=== PATIENT | female | born 1945 | race Caucasian/White ===

== ENCOUNTER 2023-11-05 10:40 | Outpatient (AMB) | payer MEDICARE, SELFPAY ==
--- NOTE | 2023-11-05 10:45 | A.OFFVIS_ITS ---
Vital Signs 11/05/23 10:47 Height 5 ft 6 in Weight 143 lb BMI 23.1 BP 191/93 H Blood Pressure Location Lt brachial Position Sitting Respiration 16 Pulse 87 Pulse Source Pulse Oximeter Pulse Oximetry (%) 97 Oxygen Delivery Method Room Air Intake Visit Reasons: DISORDER OF SACRUM Allergies iodine Adverse Reaction (Severe, Verified 11/05/23 10:49) hives latex Adverse Reaction (Severe, Verified 11/05/23 10:49) blisters Medication List - Last Reconciled 11/05/23 by Desiree Mcmullen LPN aspirin 81 mg PO BID levothyroxine 25 mcg PO DAILY raloxifene 60 mg PO DAILY trazodone 75 mg PO BEDTIME venlafaxine ER 225 mg PO DAILY HPI HPI DISORDER OF SACRUM: Details: 78-year-old female who presents today to the office for disorder of sacrum. She reports persistent lumbosacral pain for the past two years. The pain initially started on the left side, gradually involving the inguinal region, and subsequently spread to the right side. She had total hip replacement, which resolved her inguinal region pain. She also has lateral hip pain in the region of the greater trochanter and along the IT band.? She currently describes pain in her right greater trochanter and the lateral aspect of her right leg. It is described as 8-10/10 in intensity. The pain is especially worse in the evening. She is unable to sleep normally or do her daily activities due to interference from this pain. The pain is exacerbated by standing, walking, and bending. She reports discomfort with lying down. The pain is minimally alleviated by sitting down. She had an intra-articular hip joint injection on the left with Dr. Owen in orthopedics prior to the surgery with minimal to no relief. She has been man aging the pain with ibuprofen and prednisone with some relief. She reports some relief when forward bending while using the shopping cart. 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 Review of Systems Const All systems reviewed & are unremarkable except as noted in HPI and below Physical Exam Vital Signs: Last Vital Signs Pulse 87 11/05/23 10:47 Resp 16 11/05/23 10:47 BP 191/93 H 11/05/23 10:47 Pulse Ox 97 11/05/23 10:47 Oxygen Delivery Method Room Air 11/05/23 10:47 BMI result Body Mass Index 23.1 General: Appears afebrile. Alert and oriented. Mood and affect appropriate. Follows and participates in conversation appropriately. Respiratory effort is unlabored. Able to transition from sit to stand unassisted. Ambulates with bilaterally normal heel strike and toe off. There is a tenderness overlying the right greater trochanteric bursa. There is tenderness overlying the sacroiliac joint. Office Procedures Joint Injection/Aspiration Joint Injection/Aspiration Details: Right diagnostic greater trochanteric bursa injection, US guided. Primary Site: other (Right greater trochanteric bursa) Prep: site was prepped using sterile technique Injected: with 4 mL of (Ropivacaine 0.5%) and other (Around the right greater trochanter) Approach Used: other (Lateral approach under ultrasound guidance) Procedure: The patient tolerated the procedure well Coding Details: An ultrasound image of the injection was taken and stored in the permanent record - Glenohumeral/Tronchanteric Bursa/Intraarticular (right trochanter, US guided) Procedure code (CPT) selection complete Results Reviewed Results Reviewed: No imaging is available for review. Assessment & Plan Assessment & Plan (1) Piriformis syndrome: Code(s): G57.00 - Lesion of sciatic nerve, unspecified lower limb Category: Medical (2) Greater trochanteric pain syndrome: Code(s): M25.559 - Pain in unspecified hip Category: Medical Plan Discussed steroid injection vs diagnostic injection and PRP injections as possible treatment options. ? Patient is status post right diagnostic greater trochanteric bursa injection, US guided. Patient tolerated procedure well and was discharged home in stable condition with discharge instructions.? All questions were answered. The patient reported improvement in her pain after 10 minutes post injection. I asked her to keep a diary record of how her leg feels for today and if she finds this helpful, we will plan on a PRP injection at gluteal tendon insertion points around the greater trochanter. Differential also includes piriformis syndrome given her sciatica type symptoms. Scribed for Dr. Yost by Luis Miguel Dukes, medical lab technologist, on 11/05/2023. I, Dr. Yost, have personally reviewed and agree with the information entered by the scribe. Coding Level of Care Code New Pt Level 4 (36447) Diagnoses Piriformis syndrome G57.00 Greater trochanteric pain syndrome M25.559 CPT Codes Coding - Joint 7: 21522 - Glenohumeral/Tronchanteric Bursa/Intraarticular ([id number])
[2023-11-05 10:47] VITALS: BP 191/93; PULSE 87; RESP 16; O2SAT 97; BMI 23.1
== END 2023-11-05 11:35 | disposition home or self-care (01) ==
PROVIDERS: PCP Physician Assistant; Referring Provider Physical Medicine & Rehabilitation; Visit Provider Internal Medicine
DX: M25.551 Pain in right hip (principal)
CPT/HCPCS: 20611; 99204

== ENCOUNTER → 2023-11-05 10:40 | Outpatient (BNVA) | payer MEDICARE, SELFPAY | PROVIDERS: PCP Physician Assistant; Referring Provider Physical Medicine & Rehabilitation; Visit Provider Internal Medicine | DX: M25.559 Pain in unspecified hip (principal) | CPT/HCPCS: 20611; 99202 ==